=== PATIENT | male | born 1990 | race Caucasian/White ===

== ENCOUNTER 2024-08-01 08:53 | Day surgery (SDC) | payer SELFPAY ==
[2024-08-01] VITALS (8 sets, daily range): BP systolic 109–111; BP diastolic 68–85; PULSE 59–96; RESP 16; TEMP 36.1–36.9; O2SAT 96–99; BMI 27.6
--- NOTE | 2024-08-01 | GASB_PTH ---
PATIENT: SHUBHAM LYN LOC: [facility] U#:[id number] AGE/SX: 34/M ROOM: RE08/01/[address]: Dr. Tony Ibarra DO : 1990 BED: DIS: 08/01/2024 SPEC #: [id number] RECD: 08/01/24 12:57 STATUS: JACQUELYN ROSELIA #: [id number] MAXINE: 08/01/24 00:[address]: Tony Ibarra DEPT: SURGICAL PATHOLOGY RECD BY: Adal Montoya ENTERED: 08/01/24 12:58 SP TYPE: Gastric Bx OTHR DR: Dr. Willie Chi DO Tissues: A - Esophageal mucous membrane B - Gastric mucous membrane Procedures: Special Stain Group I Surgery Specimen Level IV Alcian Blue/PAS (control) HEADER OPERATION: EGD with biopsy PRE-OP DIAGNOSIS: GERD TISSUE SUBMITTED: A- Distal esophagus biopsy, B- Gastric antrum MICROSCOPIC DIAGNOSIS A. Distal esophagus, biopsy: Fragments of gastroesophageal mucosa with moderate chronic inflammation. Changes consistent with gastroesophageal reflux disease. See comment. B. Gastric antrum, biopsy: Mild gastritis. See microscopic description and comment. 08/02/2024 COMMENT A. Alcian blue/PAS stain with matched control is used in the evaluation of the specimen. Increased number of eosinophils are also noted. B. The results of immunohistochemistry for Helicobacter pylori will be reported separately ([id number]). MICROSCOPIC DESCRIPTION Slides are reviewed. B. The specimen shows fragments of gastric mucosa with chronic inflammatory cell infiltrates in the lamina propria consisting of lymphocytes and plasma cells, consistent with mild chronic gastritis. Increased number of eosinophils are also noted. GROSS DESCRIPTION A. Received in fixative is one container labeled with the patient's name and designated Distal esophagus biopsy. The specimen consists of multiple irregular fragments of light colunga soft tissue that in aggregate measure 1 x 0.5 x 0.1 cm. The specimen is totally submitted in one cassette. B. Received in fixative is one container labeled with the patient's name and designated Gastric antrum biopsy. The specimen consists of two irregular fragments of light [place] soft tissue that in aggregate measure 0.6 x 0.3 x 0.1 cm. The specimen is totally submitted in one cassette. 08/01/2024 TC:3 CPT:71655w2,28274
--- NOTE | 2024-08-01 09:39 | PCM.HP.STD ---
HPI - General General Date of Admission: 08/01/24 Date of Service: 08/01/24 Chief Complaint: GERD HPI Narrative SHUBHAM LYN, is a 34 M who presents Chief Complaint: reflux Details: SHUBHAM LYN, is a 34 M who presents to the office today for reflux. - he is a non-smoker - denies any alcohol - denies any heart or lung disease - denies any kidney disease - acid foods cause more symptoms - denies any N/V - denies any dysphagia - can tolerate coffee with PPI - Omeprazole OTC prior to starting RX and had been on OTC for 2 years - pepcid with a glass of milk at HS also resolved symptoms - started omeprazole 40mg QD RX and had a HARO - discontinued - then started lansoprazole 30mg BID - wants to trial Omeprazole again - thinks HARO was from an URI - denies any change in bowel habits - denies any weight loss \ 3 Months PFSH Medical History Gastric reflux Non-smoker History of frequent headaches Home Medications ?Medication ?Instructions ?Recorded ?Last Taken ?Type lansoprazole 30 mg capsule,delayed 30 mg PO BID 05/26/24 07/31/24 History release Allergy/AdvReac Type Severity Reaction Status Date / Time No Known Allergies Allergy Verified 08/01/24 09:27 Surgical History History of ankle surgery Social History Smoking Status: Never smoker alcohol intake: never substance use type: does not use what type of physical activity do you participate in: none ROS Constitutional Constitutional: Denies fatigue, fever(s), poor appetite, weight gain or weight loss Gastrointestinal Gastrointestinal: Denies belching, bloating, change in bowel habits, change in stool character, chewing difficulty, coffee ground emesis, constipation, cramping, diarrhea, dyspepsia, dysphagia, early satiety, excessive flatus, fecal incontinence, heartburn, hematemesis, hematochezia, hemorrhoids, loose stools, melena, nausea, odynophagia, rectal bleeding, tenesmus, vomiting or weight changes Vital Signs Vital Signs Vital Signs: 08/01/24 09:28 08/01/24 09:28 Temperature 98.4 F Temperature Source Temporal Pulse Rate 59 L Respiratory Rate 16 Respiratory Pattern Normal Blood Pressure 111/85 H Blood Pressure Mean 93 Blood Pressure Source Monitor Blood Pressure Position Semi-Fowlers Blood Pressure Location Left Arm Pulse Ox 99 Oxygen Delivery Method Room Air Weight Weight: 209 lb 7.026 oz Body Mass Index (BMI) 27.6 Physical Exam Const alert, oriented x3, no apparent distress and healthy appearing General Appearance: cooperative GI normal to inspection, nondistended, normoactive bowel sounds, soft to palpation, non-tender and non-distended Percussion: normal to percussion Rectal Exam: deferred Assessment & Plan Assessment/Plan (1) GERD (gastroesophageal reflux disease): PLAN: Thought Process: normal Assessment and Plan Assessment and Plan (1) Gastroesophageal reflux disease: Qualifiers: Esophagitis presence: esophagitis presence not specified Qualified Code(s): K21.9 - Gastro-esophageal reflux disease without esophagitis Plan 34y/o male presents for consultation with complaints of reflux. He complains of sharp/burning epigastric and lower esophageal pain x3 years. Symptoms worsen with PO intake. Denies any dysphagia, N/V or weight loss. He is presently taking lansoprazole BID and will decrease to once daily and keep us apprised of his symptoms. I have scheduled him for an EGD. Patient Instructions: 1. Continue daily PPI 2.EGD Plan Details Follow Up: 3 Months
--- NOTE | 2024-08-01 09:45 | IMM_PTH ---
PATIENT: SHUBHAM LYN LOC: [facility] U#:[id number] AGE/SX: 34/M ROOM: RE08/01/[address]: Dr. Tony Ibarra DO : 1990 BED: DIS: 08/01/2024 SPEC #: [id number] RECD: 08/01/24 13:51 STATUS: JACQUELYN REQ #: [id number] MAXINE: 08/01/24 09:[address]: Tony Ibarra DEPT: IMMUNOHISTOCHEMISTRY RECD BY: Saul Donnelly ENTERED: 08/01/24 13:51 SP TYPE: IMMUNO OTHR DR: Dr. Willie Chi DO Tissues: A - Esophagus, NOS Procedures: H Pylori (initial) PHYSICIAN & INSTITUTION [place] [address] SPECIMEN INFORMATION: Tissue Source: B- Gastric antrum biopsy Clinical Info: GERD Specimen Number: [id number] CPT code: 01135 METHODOLOGY: Deparaffinized sections of prefer/formalin-fixed tissue or PAP/DQ stained slides are incubated with monoclonal/polyclonal antibodies/oligonucleotide probes. Localization is made via biotin free immunoperoxidase method. Appropriate controls are performed and reacted as expected. Results on target cell population are indicated in the following table: RESULTS: ANTIBODY / CLONE RESULT Block B H Pylori (polyclonal) negative These tests were developed and their performance characteristics determined by [facility]. They may not have been cleared or approved by the U.S. Food and Drug Administration. The FDA has determined that such clearance or approval is not necessary. The above immunohistochemical/dualISH markers are ordered and reviewed by the Pathologist. INTERPRETATION: B. Gastric antrum, biopsy: Negative for Helicobacter pylori organisms. 08/03/2024
--- NOTE | 2024-08-01 09:55 | PRE.ANES_ITS ---
ASA Classification* ASA Classification ASA Classification: 2 Assessment & Plan Anesthesia* Anesthesia Assessment Anesthesia Assessment: Discussed sedation and/or anesthesia options, risks, benefits, and alternatives with patient/parents/legal guardian/POA. Questions invited. The patient/parents/legal guardian/POA seems to understand and agrees to proceed with anesthesia plan. Reviewed the physical assessment, medical history, allergy history and patient home medications list prior to surgery/procedure/anesthetic and documented any changes. Performed airway and anesthesia risk assessments. Anesthesia Type Anesthesia Type: MAC History Source History Obtained from:: Patient and Chart Anesthesia Focused Assessment* Temperature: 98.4 F Pulse Rate: 59 Blood Pressure: 111/85 Respiratory Rate: 16 Pulse Ox: 99 Oxygen Delivery Method: Room Air Airway Assessment Mouth opens: >3 cm Mallampati Score: II Teeth Condition: Caps/Crowns (Bridge) Neck Range of motion (ROM): Full ROM Focused Labs Anesthesia Preop lab: CBC CHEMISTRY COAG Pre-Assessment Diagnosis/Proposed Procedure Planned Operative Procedure(s): EGD Anesthesia History Anesthesia History - project manager senior: Anesthesia History - project manager senior Hx Hospitalization No 07/29/24 16:08 Any Problems With Anesthesia No 07/29/24 16:08 Cholinesterase deficiency No 07/29/24 16:08 You/Your Family Experience No 07/29/24 16:08 fever (hyperthermia) with Relationship Recent Exposure to Contagious No 08/01/24 09:28 Disease Does patient have nerve No 07/29/24 16:08 stimulator Patient instructed to have device shut off --Does patient have Pacemaker No 08/01/24 09:28 or ICD? When Was Last Pacemaker Check QUESTION #4 FULL TEXT: You/Your Family Experience fever (hyperthermia) with Anesthesia Last Oral Intake Last Oral intake: Last Oral Intake NPO since 19:00 08/01/24 09:28 Meds taken in AM with sips of No 08/01/24 09:28 water? Meds patient instructed to take am of surgery PONV PONV - project manager senior: PONV - project manager senior Female No 07/29/24 16:08 HX of Motion Sickness No 07/29/24 16:08 HX of N/V After Surgery No 07/29/24 16:08 Non-Smoker Yes 07/29/24 16:08 Duration of Surgery greater No 07/29/24 16:08 than 60 minutes Number of Risk Factors 1 07/29/24 16:08 PONV Score Low Risk 07/29/24 16:08 Height & Weight Height & Weight: Anesthesia: Height & Weight Height 6 ft 1 in 08/01/24 09:28 Weight: 95 kg 08/01/24 09:28 Body Mass Index (BMI) 27.6 08/01/24 09:28 Respiratory Assessment Respiratory Assessment - project manager senior: Respiratory Tract Infection Hx - project manager senior Hx Respiratory Tract Infection No 07/29/24 16:08 STOP Sleep Apnea STOP Sleep Apnea - project manager senior: STOP Sleep Apnea - project manager senior Hx Hypertension No 07/29/24 16:08 Hx Sleep Apnea No 07/29/24 16:08 CPAP BIPAP Do you snore loudly (louder No 07/29/24 16:08 than talking or can be heard Do you often feel tired/ No 07/29/24 16:08 fatigued/ sleepy during daytime? Has anyone observed you stop No 07/29/24 16:08 breathing during sleep? STOP Results Negative 07/29/24 16:08 QUESTION #5 FULL TEXT : Do you snore loudly (louder than talking or can be heard through closed doors)? 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 Specify any problems Hx of Preganancy in last 3 N/A 07/29/24 16:08 Months Nurse Filling Out Transfusion VLEHMAN 07/29/24 16:08 & Questions: Date: 07/29/24 07/29/24 16:08 Time: 16:12 07/29/24 16:08 Patient unable to answer at this time (ie. confused, unrespo /Reproduction History /Reproductive History - project manager senior: /Reproductive Hx- project manager senior Hx Now Gestational Age (in weeks): EDC: Hx Hx Para Hx Section SAB PFSH Medical History Gastric reflux Non-smoker History of frequent headaches Home Medications ?Medication ?Instructions ?Recorded ?Last Taken ?Type lansoprazole 30 mg capsule,delayed 30 mg PO BID 05/26/24 07/31/24 History release Allergy/AdvReac Type Severity Reaction Status Date / Time No Known Allergies Allergy Verified 08/01/24 09:27 Surgical History History of ankle surgery Social History Smoking Status: Never smoker alcohol intake: never substance use type: does not use what type of physical activity do you participate in: none Review of Systems (Anesthesia) ROS Narrative System reviewed and no additional complaints, except as documented. Respiratory/Chest Respiratory/Chest: Reports cough Gastrointestinal Gastrointestinal: Reports heartburn
--- NOTE | 2024-08-01 10:17 | OP.CCLET_ITS ---
08/01/2024 Willie Chi Re : Upper GI endoscopy procedure for Danny Sherwood Dear Alon This procedure was performed on Thursday, August 01, 2024. 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 Biopsied. - Small hiatal hernia. - Chronic gastritis. Biopsied. - Normal first portion of the duodenum. Recommendations : - Discharge patient to home. - Resume previous diet. - Continue present medications. - Await pathology results. My findings are described in the full procedure note, which is enclosed. If I can be of further assistance, please feel free to contact me at . Sincerely, Tony Ibarra, 08/01/2024 10:16:36 AM This report has been signed electronically.
--- NOTE | 2024-08-01 10:17 | OP.EGD_ITS ---
Patient Name: Danny Sherwood Procedure Date: 08/01/2024 9:41 AM Date of : 1990 Age: 34 Procedure: Upper GI endoscopy Indications: Heartburn, Suspected esophageal reflux Providers: Tony Ibarra DO Referring MD: Willie Chi Medicines: Monitored Anesthesia Care Patient Profile: This is a 34 year old male. Refer to note in patient chart for documentation of history and physical. Patient has symptoms of chronic heartburn and acute nausea. Complications: No immediate complications. Procedure: Pre-Anesthesia Assessment: - Prior to the procedure, a History and Physical was performed, and patient medications and allergies were reviewed. The patient is competent. The risks and benefits of the procedure and the sedation options and risks were discussed with the patient. All questions were answered and informed consent was obtained. Patient identification and proposed procedure were verified by the physician in the pre-procedure area. Mental Status Examination: alert and oriented. Airway Examination: normal oropharyngeal airway and neck mobility. Respiratory Examination: clear to auscultation. CV Examination: normal. Prophylactic Antibiotics: The patient does not require prophylactic antibiotics. Prior Anticoagulants: The patient has taken no anticoagulant or antiplatelet agents except for NSAID medication. ASA Grade Assessment: II - A patient with mild systemic disease. After reviewing the risks and benefits, the patient was deemed in satisfactory condition to undergo the procedure. The anesthesia plan was to use monitored anesthesia care (MAC). Immediately prior to administration of medications, the patient was re-assessed for adequacy to receive sedatives. The heart rate, respiratory rate, oxygen saturations, blood pressure, adequacy of pulmonary ventilation, and response to care were monitored throughout the procedure. The physical status of the patient was re-assessed after the procedure. After obtaining informed consent, the endoscope was passed under direct vision. Throughout the procedure, the patient's blood pressure, pulse, and oxygen saturations were monitored continuously. The Endoscope was introduced through the mouth, and advanced to the second part of duodenum. The upper GI endoscopy was accomplished without difficulty. The patient tolerated the procedure well. Scope In: 10:07:00 AM Scope Out: 10:11:56 AM Total Procedure Duration Time 0 hours 4 minutes 56 seconds Findings: There were esophageal mucosal changes consistent with short-segment Vance's esophagus present in the lower third of the esophagus. The maximum longitudinal extent of these mucosal changes was 4 cm in length. Mucosa was biopsied with a cold forceps for histology in a targeted manner at intervals of 1 cm in the lower third of the esophagus. One specimen bottle was sent to pathology. Verification of patient identification for the specimen was done. Estimated blood loss was minimal. A small hiatal hernia was present. Localized moderate inflammation characterized by erosions and erythema was found in the gastric antrum. Biopsies were taken with a cold forceps for histology. Verification of patient identification for the specimen was done. Estimated blood loss was minimal. Biopsies were taken with a cold forceps for Helicobacter pylori testing. Verification of patient identification for the specimen was done. Estimated blood loss was minimal. The first portion of the duodenum was normal. 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 Biopsied. - Small hiatal hernia. - Chronic gastritis. Biopsied. - Normal first portion of the duodenum. Recommendation: - Discharge patient to home. - Resume previous diet. - Continue present medications. - Await pathology results. Procedure Code(s): --- Professional --- 42964, Esophagogastroduodenoscopy, flexible, transoral; with biopsy, single or multiple CPT copyright 2021 [employer]. All rights reserved. The codes documented in this report are preliminary and upon ammunition officer review may be revised to meet current compliance requirements. Tony Ibarra DO 08/01/2024 10:16:36 AM This report has been signed electronically. Number of Addenda: 0 Note Initiated On: 08/01/2024 9:41 AM
--- NOTE | 2024-08-01 10:23 | PCM.POST.ANE ---
Anesthesia: Postop Eval I Current Vital Signs Temperature: 97 F Pulse Rate: 75 Blood Pressure: 111/71 Respiratory Rate: 16 Pulse Ox: 96 Oxygen Delivery Method: Room Air Assessment Airway patent: Yes Spontaneous unlabored respirations: Yes Mental status: Asleep nausea: No Vomiting: No Anesthesia Complication: No Fluid Hydration Crystalloid volume administer (ml): 30 Total IV fluid infused: 30 Progress Note Anesthesia document: Postop Eval 1 completed: Yes
--- NOTE | 2024-08-01 10:37 | PCM.POSTANE2 ---
Anesthesia Postop Eval I Sum Postop Eval Completion status Anesthesia document: Postop Eval 1 completed: Yes Anesthesia Postop Eval I Summary Anesthesia Postop Eval I Summary: Anesthesia Postop Eval I: Assessment Summary Airway patent Yes 08/01/24 10:24 [email or web address] Spontaneous unlabored Yes 08/01/24 10:24 [email or web address] respirations Mental status Asleep 08/01/24 10:24 [email or web address] nausea No 08/01/24 10:24 [email or web address] Vomiting No 08/01/24 10:24 [email or web address] Anesthesia Postop Eval I: Fluid Summary Crystalloid volume administer 30 08/01/24 10:24 [email or web address] (ml) Colloids volume administered ( ml) Blood Product volume administered (ml) Total IV fluid infused 30 08/01/24 10:24 [email or web address] Anesthesia Postop Eval I: Summary Notes Anesthesia Complication No 08/01/24 10:24 [email or web address] Anesthesia Complication Comment: Post-operative progress note Anesthesia: Postop Eval II Evaluation Mental status: Awake Pain Level: 0 nausea: No Vomiting: No
== END 2024-08-01 11:09 | disposition home or self-care (01) ==
LOC: EN 09:08 → AC 09:11
PROVIDERS: PCP Family Medicine; Referring Provider Family Medicine; Visit Provider Internal Medicine Gastroenterology
PROC: 0DJ08ZZ Inspection of Upper Intestinal Tract, Via Natural or Artificial Opening Endoscopic (ICD-10-PCS; CPT 43235; principal; 2024-08-01 09:40)
DX: K21.00 Gastro-esophageal reflux disease with esophagitis, without bleeding (principal); K44.9 Diaphragmatic hernia without obstruction or gangrene; Z79.899 Other long term (current) drug therapy; K22.70 Barrett's esophagus without dysplasia; K25.9 Gastric ulcer, unspecified as acute or chronic, without hemorrhage or perforation; K29.70 Gastritis, unspecified, without bleeding
CPT/HCPCS: 43239; 88305; 88312; 88342; A4216; J2405